=== PATIENT | female | born 1985 | race Caucasian/White ===

== ENCOUNTER → 2018-01-04 | Outpatient (CLI) | payer OTHER | LOC: COL.LAB 11:58 | DX: R19.7 Diarrhea, unspecified (principal) ==

== ENCOUNTER → 2018-01-04 | Outpatient (CLI) | payer OTHER ==
[2018-01-04 12:57] LABS: BASO # 0.1 (0.0-0.2); BASO % 0.5 % (0.0-2.0); EOS # 2.3 (0.0-0.7); EOS % 23.7 % (0-4.0); GRAN # 6.5 (1.4-6.5); GRAN % 66.6 % (42.2-75.2); HEMATOCRIT 42.8 % (37.0-47.0); HEMOGLOBIN 14.9 g/dl (12.5-16.0); LYMPH # 0.3 (1.2-3.4); LYMPH % 3.4 % (20.0-51.0); MEAN CELL VOLUME 84 fl (80.0-100.0); MEAN CORPUSCULAR HEMOGLOBIN 29 pg (27.0-31.0); MEAN CORPUSCULAR HGB CONC 35 g/dl (33.0-37.0); MEAN PLATELET VOLUME 8.7 fl (7.4-10.4); MONO # 0.5 (0.1-0.6); MONO % 5.5 % (1.7-9.3); PLATELET COUNT 176 K/mm3 (130-400); RED BLOOD COUNT 5.07 M/mm3 (4.10-5.30); REDCELL DISTRIBUTION WIDTH-CV 14.2 % (11.5-14.5)
[2018-01-04 13:09] LABS: ALBUMIN 4.4 gm/dL (3.5-5.0); CALCIUM 8.8 mg/dL (8.4-10.2); CREATININE, serum 0.66 mg/dL (0.52-1.25); POTASSIUM 4.2 mmol/L (3.4-5.0); TOTAL PROTEIN 7.4 gm/dL (6.4-8.2)
[2018-01-04 13:10] LABS: BILIRUBIN,TOTAL 0.5 mg/dL (0.0-1.0)
== END ==
LOC: COL.LAB 12:00
PROVIDERS: Physician Assistant
DX: R19.7 Diarrhea, unspecified (principal)

== ENCOUNTER → 2018-02-26 | Outpatient (CLI) | payer OTHER | LOC: COL.RAD 08:56 | DX: C71.3 Malignant neoplasm of parietal lobe (principal); G93.89 Other specified disorders of brain; Z98.890 Other specified postprocedural states | CPT/HCPCS: A9585 ==

== ENCOUNTER → 2018-05-01 | Outpatient (CLI) | payer OTHER | LOC: COL.RAD 08:36 | DX: C71.3 Malignant neoplasm of parietal lobe (principal); Z98.890 Other specified postprocedural states | CPT/HCPCS: A9585 ==

== ENCOUNTER → 2018-08-19 | Outpatient (REF) | LOC: ZLAB.WCH 13:57 | DX: Z01.89 Encounter for other specified special examinations (principal) ==

== ENCOUNTER → 2019-01-07 | Outpatient (CLI) | payer OTHER | LOC: COL.RAD 07:24 | DX: C71.3 Malignant neoplasm of parietal lobe (principal); G93.89 Other specified disorders of brain | CPT/HCPCS: A9585 ==

== ENCOUNTER → 2019-03-11 | Outpatient (CLI) | payer OTHER | LOC: COL.RAD 07:30 | DX: C71.3 Malignant neoplasm of parietal lobe (principal) | CPT/HCPCS: A9585 ==

== ENCOUNTER 2019-12-10 09:37 | Emergency (ER) | payer OTHER, BC ==
[~2019-12-10] VITALS: Ht 185.4 cm; Wt 124.1 kg
[2019-12-10 09:42] VITALS: TEMP 97.7
[2019-12-10 10:00] LABS: COLLECTION METHOD CLEAN CATCH
[2019-12-10 10:08] LABS: MUCOUS Present /lpf; PH 6 (5-8); URINE APPEARANCE Hazy; URINE BACTERIA Rare /hpf; URINE BILIRUBIN Negative (NEGATIVE); URINE BLOOD Negative (NEGATIVE); URINE COLOR Yellow; URINE GLUCOSE Negative (NEGATIVE); URINE KETONE Negative (NEGATIVE); URINE LEUKOCYTE ESTERASE Negative (NEGATIVE); URINE NITRATE Negative (NEGATIVE); URINE PROTEIN(semi-quant) 3+ (NEGATIVE); URINE RBC 0-2 /hpf; URINE UROBILINOGEN Negative (NEGATIVE)
[2019-12-10 10:11] LABS: BASO % 0.3 % (0.0-2.0); EOS % 0.5 % (0-4.0); GRAN # 5.4 (1.4-6.5); GRAN % 73.2 % (42.2-75.2); HEMOGLOBIN 12.8 g/dl (12.5-16.0); LYMPH # 1.4 (1.2-3.4); LYMPH % 18.9 % (20.0-51.0); MEAN CELL VOLUME 88 fl (80.0-100.0); MEAN CORPUSCULAR HEMOGLOBIN 31 pg (27.0-31.0); MEAN CORPUSCULAR HGB CONC 35 g/dl (33.0-37.0); MEAN PLATELET VOLUME 9.9 fl (7.4-10.4); MONO # 0.5 (0.1-0.6); MONO % 6.3 % (1.7-9.3); PLATELET COUNT 161 K/mm3 (130-400); RED BLOOD COUNT 4.13 M/mm3 (4.10-5.30)
[2019-12-10 10:13] LABS: HEMATOCRIT 36.5 % (37.0-47.0)
[2019-12-10 10:14] LABS: INR 0.9 (0.8-3.0); PROTHROMBIN TIME 10.3 SECONDS (9.7-12.8)
[2019-12-10 10:29] LABS: ALBUMIN 3.5 gm/dL (3.5-5.0); BILIRUBIN,TOTAL 0.3 mg/dL (0.0-1.0); CALCIUM 8.7 mg/dL (8.4-10.2); CREATININE, serum 0.88 (0.52-1.25); POTASSIUM 3.9 mmol/L (3.4-5.0); TOTAL PROTEIN 6.4 gm/dL (6.4-8.2); URIC ACID 5.3 mg/dL (2.5-6.2)
[2019-12-10] MEDS ORDERED: PROZAC 20MG20 MG PO (10:37)
[2019-12-10] MEDS ORDERED: ZYRTEC 10MG10 MG PO (10:37)
[2019-12-10] MEDS ORDERED: PEPCID 20MG TAB20 MG (10:37)
[2019-12-10] MEDS ORDERED: KEPPRA1000 MG PO (10:38)
[2019-12-10] MEDS ORDERED: PRENATAL TABLET (10:39)
[2019-12-10] MEDS ORDERED: KEPPRA1000 MG (10:39)
[2019-12-10 15:24] VITALS: BP 169/102; PULSE 71
== END 2019-12-10 14:56 | disposition short-term general hospital (02) ==
LOC: COL.ER 09:37
PROVIDERS: Emergency Medicine
DX: O99.353 Diseases of the nervous system complicating pregnancy, third trimester (principal); O99.343 Other mental disorders complicating pregnancy, third trimester; D49.6 Neoplasm of unspecified behavior of brain; G40.909 Epilepsy, unspecified, not intractable, without status epilepticus; F32.9 Major depressive disorder, single episode, unspecified; Z3A.30 30 weeks gestation of pregnancy
CPT/HCPCS: J0702; J3360; J3475; J7030

== ENCOUNTER → 2021-03-01 | Outpatient (CLI) | payer OTHER ==
[~2021-03-01] MED LIST: KEPPRA1000 MG; KEPPRA1000 MG PO; PEPCID 20MG TAB20 MG; PRENATAL TABLET; PROZAC 20MG20 MG PO; ZYRTEC 10MG10 MG PO
== END ==
LOC: COL.RAD 12:15
DX: D49.6 Neoplasm of unspecified behavior of brain (principal); Z98.890 Other specified postprocedural states
CPT/HCPCS: A9585

== ENCOUNTER → 2021-04-26 | Outpatient (CLI) | payer OTHER | LOC: COL.RAD 04-18 09:00 | DX: C71.9 Malignant neoplasm of brain, unspecified (principal) | CPT/HCPCS: A9585 ==

== ENCOUNTER → 2021-07-31 | Outpatient (CLI) | payer OTHER | LOC: COL.RAD 08:02 | DX: C71.3 Malignant neoplasm of parietal lobe (principal) | CPT/HCPCS: A9575 ==

== ENCOUNTER → 2021-11-20 | Outpatient (CLI) | payer OTHER | LOC: COL.RAD 06:45 | DX: C71.3 Malignant neoplasm of parietal lobe (principal); J32.9 Chronic sinusitis, unspecified | CPT/HCPCS: A9575 ==